=== PATIENT | male | born 1980 | race Caucasian/White ===

== ENCOUNTER 2016-06-14 18:43 | Emergency (ER) | payer OTHER | END 2016-06-14 21:40 | disposition home or self-care (01) | LOC: FER 18:43 | DX: S46.911A Strain of unspecified muscle, fascia and tendon at shoulder and upper arm level, right arm, initial encounter (principal); F31.89 Other bipolar disorder; F17.210 Nicotine dependence, cigarettes, uncomplicated; Z79.899 Other long term (current) drug therapy; X50.0XXA Overexertion from strenuous movement or load, initial encounter | CPT/HCPCS: 73030; J1885 ==

== ENCOUNTER 2021-03-11 14:15 | Emergency (ER) | payer OTHER ==
[~2021-03-11 14:15] MED LIST: FLEXERIL10 MG PO; LAMICTAL100 MG PO; PREDNISONE 20MG20 MG PO; SEROQUEL 100MG100 MG PO; TYLENOL #31 EACH PO
[2021-03-11 14:57] LABS: BASOPHIL 0.2 % (0-2); EOSINOPHIL 0.3 % (0-5); HGB 13.1 g/dl (13.2-18.0); LYMPHOCYTE 23.5 % (15-48); MCH 31.3 pg (25.0-31.0); MCHC 33.6 g/dL (32.0-36.0); MCV 93.3 fL (78.0-100.0); MPV 10.3 fL (6.0-9.5); NEUTROPHIL 67.8 % (41-80); NRBC 0; PLT 245 K/uL (150-400); RBC 4.18 M/uL (4.70-6.00); RDW 13.1 % (11.5-14.0)
[2021-03-11 15:03] LABS: BUN/CREAT RATIO (CALC) 19.2 RATIO; CREATININE 0.78 mg/dL (0.67-1.17); POTASSIUM 4.1 mmol/L (3.5-5.1)
[2021-03-11 16:49] LABS: BILIRUBIN NEGATIVE (NEGATIVE); BLOOD NEGATIVE Ery/uL (NEGATIVE); CLARITY CLEAR (CLEAR); COLOR YELLOW (YELLOW); GLUCOSE (U) NORMAL (NORMAL); LEUKOCYTES NEGATIVE Leu/uL (NEGATIVE); NITRITE NEGATIVE (NEGATIVE); PROTEIN NEGATIVE (NEGATIVE); SPECIFIC GRAVITY >=1.030 (1.001-1.030); UROBILINOGEN 0.2 mg/dL (0.2-1.0)
[2021-03-11] MEDS ORDERED: PERCOCET 10-321 EACH PO (18:54)
[2021-03-11] MEDS ORDERED: MEDROL 4MG DOSEP4 MG PO (18:54)
== END 2021-03-11 21:45 | disposition home or self-care (01) ==
LOC: FER 14:15
PROVIDERS: Internal Medicine
DX: M51.17 Intervertebral disc disorders with radiculopathy, lumbosacral region (principal); F17.210 Nicotine dependence, cigarettes, uncomplicated; Z88.6 Allergy status to analgesic agent
CPT/HCPCS: 36415; 72131; 80048; 81003; 83690; 85025; J1170; J2930; J7030